=== PATIENT | female | born 1960 | race Caucasian/White ===

== ENCOUNTER 2017-01-09 13:54 | Emergency (ER) | payer OTHER ==
[~2017-01-09] VITALS: Ht 160 cm; Wt 68.0 kg
[2017-01-09 14:20] VITALS: BP 128/60
--- NOTE | 2017-01-09 14:49 | PHYS DOC ---
Past Medical History Past Medical History: GERD, High Cholesterol, Hypertension, Hypothyroid, Other Additional Past Medical Histor: LUPUS Past Surgical History: Hysterectomy, Tonsillectomy, Other Additional Past Surgical Histo: BLADDER SLING, VEINS REMOVED FROM RIGHT LEG Alcohol Use: None Drug Use: None Adult General Chief Complaint Chief Complaint: LOWER EXT PAIN [facility] HPI Patient is a 56 year old female presents emergency department stating that she was running last which she felt a pop in her lateral part of her right knee. She states that as the days have gone on she has become painful in the lower right calf area. She does have swelling and tenderness. Positive Homans sign. Peripheral pulses are 2+ cap refill is brisk less than 2 seconds. Patient has increased pain when trying to ambulate states that she can ambulate slowly. She denies any numbness or tingling down to the lower extremity. Patient does state that she's had histories of blood clots in the past although after talking with her she states that they have been superficial blood clots. Review of Systems Review of Systems Constitutional: Denies fever or chills [] Eyes: Denies change in visual acuity, redness, or eye pain [] HENT: Denies nasal congestion or sore throat [] Respiratory: Denies cough or shortness of breath [] Cardiovascular: No additional information not addressed in HPI [] GI: Denies abdominal pain, nausea, vomiting, bloody stools or diarrhea [] : Denies dysuria or hematuria [] Musculoskeletal: Denies back pain. Right lower leg pain Integument: Denies rash or skin lesions [] Neurologic: Denies headache, focal weakness or sensory changes [] Endocrine: Denies polyuria or polydipsia [] Allergies Allergies Allergies Coded Allergies Type Severity Reaction Last Updated Verified acetaminophen Allergy Unknown HEART PALPITATION 01/09/17 Yes amoxicillin Allergy Unknown RASH 01/09/17 Yes hydrocodone Allergy Unknown HEART PALPITATION 01/09/17 Yes hydroxychloroquine Allergy Unknown RASH 01/09/17 Yes Physical Exam Physical Exam Constitutional: Well developed, well nourished, no acute distress, non-toxic appearance. [] HENT: Normocephalic, atraumatic, bilateral external ears normal, oropharynx moist, no oral exudates, nose normal. [] Eyes: PERRLA, EOMI, conjunctiva normal, no discharge. [] Neck: Normal range of motion, no tenderness, supple, no stridor. [] Cardiovascular:Heart rate regular rhythm, no murmur [] Lungs & Thorax: Bilateral breath sounds clear to auscultation [] Skin: Warm, dry, no erythema, no rash. [] Back: No tenderness Extremities: right lower calf tenderness, no cyanosis, no clubbing, ROM intact, no edema. Positive Homans sign, peripheral pulses 2+ cap refill brisk less than 2 seconds. Tenderness noted on the right lateral knee area. No swelling noted at the knee area although there is swelling noted of the calf. No discoloration no bruising noted at the knee or calf. Neurologic: Alert and oriented X 3, normal motor function, normal sensory function, no focal deficits noted. [] Psychologic: Affect normal, judgement normal, mood normal. [] Current Patient Data Vital Signs Vital Signs Date Time Temp Pulse Resp B/P (MAP) Pulse Ox O2 Delivery O2 Flow Rate FiO2 01/09/17 14:20 95.0 72 18 99 Room Air 95.0 EKG EKG [] Radiology/Procedures Radiology/Procedures [] Course & Med Decision Making Course & Med Decision Making Pertinent Labs and Imaging studies reviewed. (See chart for details) Venous doppler negative for DVT. Patient will be discharge home in stable condition. She will be encouraged to use ibuprofen for pain and discomfort. Ice packs on 20 minutes and off 20 minutes several times a day. Elevation as mush as possible. Patient will be encouraged to followup with orthopedic in 3-5 days.Signs and symptoms to return to the emergency department has been provided. Bay wrap to the knee and calf for comfort for the next 7 days. Assumed care at 17:00 Right knee xray interpreted by Dr. Yost was negative for any acute findings. Dragon Disclaimer Dragon Disclaimer This electronic medical record was generated, in whole or in part, using a voice recognition dictation system. Departure Departure Impression: Primary Impression: Knee pain, right Additional Impressions: Right calf pain Popliteal cyst Disposition: 01 HOME, SELF-CARE Condition: STABLE Referrals: MIN MAGUIRE II, MD Patient Instructions: العلي's Cyst, Knee Pain, [id number] Additional Instructions: X-rays negative for fracture, Venous doppler negative for DVT Activity as tolerated Ibuprofen for pain and discomfort Ice packs on 20 minutes and off 20 minutes several times a day Elevation as much as possible Bay wrap to the knee and calf for the next 7 days for comfort Followup with orthopedic in the next 3-5 days Return to emergency department as needed for signs and symptoms that become worse. Problem Qualifiers Primary Impression: Knee pain, right Chronicity: acute Qualified Codes: M25.561 - Pain in right knee Additional Impressions: Popliteal cyst Laterality: right Qualified Codes: M71.21 - Synovial cyst of popliteal space [العلي], right knee ROQUE ROJAS COUN[employer]ORS January 09, 2017 14:49 NICHOLE SALCIDO APRN January 09, 2017 17:58
--- NOTE | 2017-01-09 19:27 | RAD ---
Right lower extremity venous ultrasound, 01/09/2017: HISTORY - RIGHT CALF PAIN Duplex evaluation of the major veins of the right lower extremity was performed including grayscale, color flow and spectral Doppler analysis. The femoral and popliteal veins demonstrate normal compressibility and normal responses to distal augmentation maneuvers. Color imaging of those vessels shows no evidence of intraluminal clot. The visualized deep veins in the right calf are patent. There is a elongated fluid collection in the popliteal fossa compatible with a العلي's cyst. It measures approximately 5 x 1 centimeters. IMPRESSION 1. No sonographic evidence of deep vein thrombosis in the right lower extremity. 2. Small right العلي cyst. Electronically signed by: Tristan Coreas MD (January 09, 2017 16:07:28)
--- NOTE | 2017-01-10 08:28 | RAD ---
Indication: Pain after a run today. Grand a pop. Decreased range of motion. Technique: 3 views of the right knee are submitted for review. No comparison is available. Findings: There is no fracture or dislocation. There may be a small joint effusion. There is mild tricompartmental spurring. There is no compartmental narrowing. Impression: Mild degenerative changes in the right knee.
== END 2017-01-09 18:05 | disposition home or self-care (01) ==
LOC: ER 14:45
DX: M25.561 Pain in right knee (principal); M79.661 Pain in right lower leg; M71.21 Synovial cyst of popliteal space [Baker], right knee; K21.9 Gastro-esophageal reflux disease without esophagitis; E78.00 Pure hypercholesterolemia, unspecified; E03.9 Hypothyroidism, unspecified; Z88.0 Allergy status to penicillin; Z88.5 Allergy status to narcotic agent; Z88.6 Allergy status to analgesic agent; Z88.8 Allergy status to other drugs, medicaments and biological substances
CPT/HCPCS: 73562; 93971; 99284